=== PATIENT | male | born 1945 | race Caucasian/White ===

== ENCOUNTER 2018-01-08 19:24 | Emergency (ER) | payer MEDICARE, OTHER ==
[2018-01-08] MEDS ORDERED: Lidocaine 2% Jelly 5 ML TUBE ONE (20:35)
[2018-01-08] MEDS ORDERED: cefTRIAXone\\ROCEPHIN 500 MG VIAL ONE (21:01)
[2018-01-08] MEDS ORDERED: Lidocaine 1% (PF) 30 ML VIAL ONE (21:01)
== END 2018-01-08 22:21 | disposition home or self-care (01) ==
LOC: ERS 19:24
DX: R33.9 Retention of urine, unspecified (principal); E78.5 Hyperlipidemia, unspecified; I10 Essential (primary) hypertension
CPT/HCPCS: 51703; 96372; J0696; J2001

== ENCOUNTER 2018-10-16 09:51 | Inpatient (IN) | payer MEDICARE, OTHER ==
--- NOTE | 2018-10-14 20:33 | HP ---
HISTORY OF PRESENT ILLNESS: Bolivar Saucedo is a 73-year-old patient of Dr. Mcnulty, referred for a 2-1/2- to 3-week history of walking difficulty. This started after doing some ground work at home approximately 3 weeks ago. He had some back pain thereafter and over the course of a week began to experience significant weakness in the legs. The weakness has progressed now to the point that he has bilateral footdrop, worse on the right. Increasingly, the pain was significant for the first few days and then went away. Today, he is relatively pain free as he sits in the wheelchair for his examination. He has not lost control of his bowel or bladder, but the legs are not safe for him to walk on. He has had some 2 to 3 falls in the last 10 days. There is no neck pain. There is no mid back pain. There is no difficulty with arms or hands. There is no cognitive decline. Mr. Saucedo does not have history of cardiovascular events and has no exposure to recent viral infections. PAST MEDICAL HISTORY: Gout, hypertension, prostate hypertrophy. PAST SURGICAL HISTORY: Rotator cuff surgery, knee replacement, and herniorrhaphies. MEDICATIONS: 1. Triamterene. 2. Hydrochlorothiazide. 3. Meloxicam. 4. Simvastatin. 5. Flomax. 6. Finasteride. 7. Ranitidine. 8. Aspirin. ALLERGIES: BACTRIM AND LEVAQUIN. FAMILY HISTORY: Mr. Saucedo's father was , he had diabetes, hypertension, and stroke. His mother was , she also had diabetes, hypertension, heart disease, and stroke. He has two children. They are healthy and alive. 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 He lives with his for 47 years. He denies tobacco use, drug use, or alcohol use. REVIEW OF SYSTEMS: Multisystem review of systems was negative. PHYSICAL EXAMINATION: GENERAL: Mr. Saucedo is 5 feet 10 inches and weighs 199 pounds. NEUROLOGICAL: Cranial nerves 2 through 12 are intact. Cerebral exam; there is no truncal ataxia. Alternating rapid hand movements are performed rapidly and smoothly. Cognitive: Mr. Saucedo is awake and alert. He responds appropriately to questions. There are no obvious cognitive deficits for a man of this age. Speech is fluent. There is no evidence of dysphasia. Motor exam, upper extremities are normal. In the lower extremities, there is weakness that is mild in the quadriceps on the right and severe in the anterior tib on both sides, right worse than left. EHL is severely weak on the right greater than left. Toe flexors are weak, but not as weak as the extensor. Sensory exam; upper extremities are normal. In the lower extremities, there is an altered sensation, predominantly in the L5 distribution, worse on the right than the left. Reflexes; the reflexes at the knee and ankles are absent. The toes are downgoing. Reflexes in the upper extremities are preserved, but hypoactive and symmetric. IMAGING: I reviewed MR imaging of the lumbar spine that shows multisegment lumbar degenerative changes. These changes include ligamentous hypertrophy, facet overgrowth, bone spurs, and disk protrusions. Changes are more significant at L2-L3, L3-L4, and L4-L5. L4-L5 is by far the worst. There seems to be a new disk herniation in the lateral foramen on the right side at L4-L5 and the far lateral space as well. At L5-S1, there is a little lateral recess stenosis under the facet joint on the left. IMPRESSION: 1. Likely severe lumbar stenosis with acute exacerbation with physical activity. 2. New herniated disk. The only confusing aspect of the story is that Mr. Saucedo is relatively pain free currently. Pain free, acute weakness, and flaccid reflex. There might be an acute spinal cord compression in the thoracic spine. Postviral acute inflammatory demyelinating polyradiculoneuropathy is possible, but much less likely severity of the lumbar stenosis is significant, most likely the cause. I have offered a decompressive laminectomy. The patient has consented. Risks and benefits have been discussed which include, but is not limited to bleeding, infection, CSF leak, nerve damage, cauda equina injury, paralysis, incontinence, wheel chair dependence, major blood vessel injury, cardiopulmonary complications of anesthesia, and . Long-term complications include the need for further surgery and spinal instability. The patient states he understands the risks and he is willing to proceed. Job ID: [id number]
[2018-10-16] MEDS ORDERED: CEFAZOLIN 2 GM/50 ML BAG ONE (11:58)
[2018-10-16] MEDS ORDERED: Thrombin 5000 UNITS/5 ML VIAL ONE (13:43)
[2018-10-16] MEDS ORDERED: Sodium Chloride 0.9% 20 ML ONE (13:43)
[2018-10-16] MEDS ORDERED: Bupivacaine HCl 0.5%/Epinephrine 1:200,000/PF 30 ml Vial ONE (13:43)
[2018-10-16] MEDS ORDERED: Fentanyl 100 MCG/2 ML VIAL ONE ×5 (14:16→18:46)
[2018-10-16] MEDS ORDERED: Promethazine HCl 25 MG/ML VIAL SLOW IVP PRN (16:52)
[2018-10-16] MEDS ORDERED: Promethazine HCl 25 MG/ML VIAL IM PRN ×2 (16:52→17:46)
[2018-10-16] MEDS ORDERED: Ondansetron HCl/PF 4 MG/2 ML Vial IVP PRN (16:52)
[2018-10-16] MEDS ORDERED: diphenhydrAMINE 50 MG/ML VIAL IVP PRN (17:46)
[2018-10-16] MEDS ORDERED: Promethazine 25 MG TAB PO PRN (17:46)
[2018-10-16] MEDS ORDERED: Bisacodyl 10 MG SUPP PR PRN (17:46)
[2018-10-16] MEDS ORDERED: Acetaminophen 325 MG TAB PO PRN (17:46)
[2018-10-16] MEDS ORDERED: Morphine 4 MG/ML VIAL SLOW IVP PRN ×2 (17:46)
[2018-10-16] MEDS ORDERED: Milk Of Magnesia 30 ML UDCUP PO PRN (17:46)
[2018-10-16] MEDS ORDERED: Ondansetron PF 4 MG/2 ML Vial IVP PRN (17:46)
[2018-10-16] MEDS ORDERED: diphenhydrAMINE 25 MG CAP PO PRN (17:46)
[2018-10-16] MEDS ORDERED: Mag-Al 1200 mg/1200 mg/30 ML UDCUP PO PRN (17:46)
[2018-10-16] MEDS ORDERED: Acetaminophen 650 MG Suppository PR PRN (17:46)
[2018-10-16 20:04] VITALS: BMI 28.8
[2018-10-16] MEDS: Sodium Chloride 0.9% 1,000 ML IV SCH (20:07)
[2018-10-16] MEDS: CEFAZOLIN 2 GM/50 ML BAG IVPB SCH (20:46)
[2018-10-16] MEDS ORDERED: Non-Formulary Item 1 EACH (Ranitidine Hcl [Ranitidine Hcl] 150 MG) PO SCH (21:00)
[2018-10-16] MEDS ORDERED: PROPOFOL 200 MG/20 ML VIAL ONE (21:08)
[2018-10-16] MEDS ORDERED: PHENYLEPHRINE-NS 100 MCG/ML 10 ML SYRINGE ONE (21:08)
[2018-10-16] MEDS ORDERED: Glycopyrrolate 0.2 MG/ML 5 ML SYRINGE ONE (21:08)
[2018-10-16] MEDS ORDERED: Dexamethasone 20 MG/5 ML VIAL ONE (21:08)
[2018-10-16] MEDS ORDERED: ePHEDrine/0.9% NaCl/PF SYRINGE 50 mg/10 ml ONE (21:08)
[2018-10-16] MEDS ORDERED: Lidocaine 1% PF 5 ML VIAL ONE (21:08)
[2018-10-16] MEDS: tiZANidine HCl 4 MG TAB PO PRN (21:12)
[2018-10-16] MEDS: Famotidine 20 MG TAB PO SCH (21:12)
[2018-10-16] MEDS: Tamsulosin HCl 0.4 MG CAP PO SCH (21:12)
[2018-10-16] MEDS: Simvastatin 40 MG TAB PO SCH (21:12)
--- NOTE | 2018-10-17 00:41 | OP ---
DATE OF PROCEDURE: 10/16/2018 SECURITIES TELLER: Danielle Nunez PA-C. PREOPERATIVE INDICATION: Treat pain and prevent neurological deterioration. PREOPERATIVE DIAGNOSES: Multilevel lumbar stenosis and lateral recess disease causing severe neurogenic claudication, L2-L3, L3-L4, L4-L5 and left L5-S1, intervertebral disk herniation, far lateral, right L4-L5. POSTOPERATIVE DIAGNOSES: Multilevel lumbar stenosis and lateral recess disease causing severe neurogenic claudication, L2-L3, L3-L4, L4-L5 and left L5-S1, intervertebral disk herniation, far lateral, right L4-L5. OPERATIVE PROCEDURE: With a decompressive laminectomy, medial facetectomy, foraminotomy, L2-L3, L3-L4, L4-L5, left L5-S1, microdiskectomy, far-lateral approach of right L4-L5 operative microscope. PREOPERATIVE MEDICATIONS: Ancef 2 g IV. DRAINS: Zero. DRAIN TYPE: None. DESCRIPTION OF PROCEDURE: The patient was brought to the operating room. General endotracheal anesthesia was induced. The patient was positioned prone on gel-filled chest rolls, and a lateral fluoro radiograph was used to plan our incision. The lumbar skin was sterilely prepped and draped. We opened our planned incision with a #10 blade knife and controlled bleeding with bipolar and monopolar cautery. We used monopolar cautery to dissect through the subcutaneous tissues to the thoracodorsal fascia. We incised the fascia in the midline and we reflected the paraspinal muscles off the spinous process and lamina of L2 through S1. Self-retaining retractors were placed and a lateral fluoro radiograph confirmed the levels upon which we were operating. We then used an Adson rongeur to remove the spinous process of L2, L3, L4 and the superior portion of L5. We waxed the bone edges. Using a Kerrison rongeur, we fashioned a laminectomy down the midline and then we widened our laminectomy defect until we were flush with the pedicles. We then needed to decompress the lateral recesses even further. We performed medial facetectomies with Kerrison rongeurs and foraminotomies over the exiting nerve roots including the L2, L3, L4 and L5 nerve roots. At the completion of our decompression, the center of the canal, lateral recesses were all well decompressed. We waxed the bone edges and then turned our attention to the left side of L5-S1. In a similar fashion, we performed a hemilaminectomy at L5-S1 on the left. We performed a medial facetectomy until we could visualize the S1 nerve root beneath the medial facet. We removed enough medial facet that the nerve root no longer had any compression on its dorsal aspect. We performed a foraminotomy over that exit of the S1 nerve root. We irrigated copiously with bacitracin irrigation and waxed the bone edges there. We then brought the operative microscope into the field. Under microscopic magnification and using microsurgical techniques, we carefully performed a microdiskectomy and a thorough far-lateral approach at L4-L5 on the right side. Using a high-speed drill, we drilled away the superior portion of the facet joint at L4-L5 and the inferior portion of the transverse process of L4. We countered soft tissue in the foramen. We performed a foraminotomy in this lateral approach. I placed a Sweeney ball probe in the canal and out the foramen and made sure that our bites were above the ball probe, removing soft tissue and intervertebral disks until we could easily visualize the L4 nerve root. It was well decompressed at the completion of our diskectomy and foraminotomy. We irrigated copiously with bacitracin irrigation. We then infused local anesthetic in all the paraspinal muscles. We closed the wound in anatomical layers. We applied a sterile dressing. This was a clean case. No contamination. Job ID: [id number]
[2018-10-17] MEDS: Acetaminophen/Codeine 30-300mg Tablet PO PRN ×3 (02:07→16:31)
[2018-10-17] MEDS: CEFAZOLIN 2 GM/50 ML BAG IVPB SCH (03:35)
[2018-10-17] MEDS ORDERED: Tamsulosin HCl 0.4 MG CAP PO SCH (06:00)
[2018-10-17] MEDS: Sodium Chloride 0.9% 1,000 ML IV SCH ×2 (07:54→23:48)
[2018-10-17] MEDS: Finasteride 5 MG TAB PO SCH (08:20)
[2018-10-17] MEDS: Meloxicam 15 MG TAB PO SCH (08:21)
[2018-10-17] MEDS: Famotidine 20 MG TAB PO SCH ×2 (08:21→20:27)
[2018-10-17] MEDS: Tamsulosin HCl 0.4 MG CAP PO SCH ×2 (08:21→20:27)
[2018-10-17] MEDS: Triamterene/Hydrochlorothiazide 37.5 mg/25 mg Tablet PO SCH (08:22)
--- NOTE | 2018-10-17 11:59 | PRG ---
DATE OF SERVICE: 10/17/2018 Mr. Saucedo is doing well with improvement in his leg pain and paresthesias. He does have significant urinary retention due to an enlarged prostate gland that has been evaluated by Urology. He does have an indwelling Leon catheter. They have asked to stay one more day and I think it is reasonable. He is working with Physical Therapy and just walked 100 feet, although he does live at home with his and she feels as if she is not quite ready to take care of him, if he had to go home today. We will plan one more day in the hospital. Job ID: [id number]
--- NOTE | 2018-10-17 14:25 | CON ---
DATE OF CONSULTATION: 10/17/2018 TYPE OF CONSULTATION: Urology inpatient consultation. REASON FOR CONSULTATION: Urinary retention. REQUESTING PHYSICIAN: Abdon Jackson MD HISTORY OF PRESENT ILLNESS: Mr. Saucedo is a 73-year-old male, who over the past week had progressive bilateral lower extremity weakness. On presentation, he had MRI imaging, which demonstrated multilevel degenerative disk disease with possibly a new herniation. He underwent a decompressive laminectomy yesterday on 10/16/2018. He tolerated the procedure well and was transferred to the floor postoperatively. Intraoperatively, attempts of placement of Leon catheter were unsuccessful. He was unable to void last night, and during the night, he had a 14-Lithuanian Coude placed with some difficulty. The patient now feels relieved. He has been draining clear yellow urine since then. Urology was consulted for further evaluation. The patient sees Dr. Moore as an outpatient. He has history of what he describes as masses and prostate enlargement and underwent a prostate biopsy earlier this year and subsequently developed urinary retention thereafter. The patient reports his biopsy was negative and he currently takes tamsulosin and finasteride at home. No gross hematuria. On a day-to-day basis, he reports minimal voiding difficulty. No other complaints. REVIEW OF SYSTEMS: Full 12-point review of systems was performed and is negative other than that mentioned in the HPI. PAST MEDICAL HISTORY: 1. BPH. 2. Gout. 3. Hypertension. PAST SURGICAL HISTORY: Rotator cuff surgery, knee replacement, and hernia repairs. HOME MEDICATIONS: 1. Triamterene. 2. Hydrochlorothiazide. 3. Meloxicam. 4. Simvastatin. 5. Flomax. 6. Finasteride. 7. Ranitidine. 8. Aspirin. FAMILY HISTORY: Noncontributory. SOCIAL HISTORY: The patient is a retired computer programer. He lives with his . No alcohol, tobacco, or illicit drugs. ALLERGIES: NO KNOWN DRUG ALLERGIES. PHYSICAL EXAMINATION: VITAL SIGNS: Temperature 98, pulse 64, respirations 18, oxygen saturation 96% on room air, and blood pressure 99/61. GENERAL: He is alert and oriented x3, no apparent distress. HEENT: Normocephalic, atraumatic. NECK: Supple. No masses or lymphadenopathy. CARDIOVASCULAR: Regular rate and rhythm. PULMONARY: Breathing unlabored. ABDOMEN: Soft, nontender, nondistended. No masses or organomegaly. No suprapubic tenderness to palpation. No CVA tenderness. GENITOURINARY: Normal penis without concerning lesion. Scrotum normal. Testis palpably normal bilaterally. Leon catheter in place, draining clear yellow urine and confirmed to be correctly positioned. ASSESSMENT: A 73-year-old male with benign prostatic hypertrophy with bladder outlet obstruction, acute urinary retention, and symptomatic disk herniation, status post decompressive laminectomy. PLAN: I reviewed the natural history and clinical implications of urinary retention with the patient in detail. I explained this is likely secondary to his BPH with bladder outlet obstruction. I explained that the effects of anesthesia and manipulation of the urinary tract intraoperatively with Leon catheter placement likely created some swelling in the prostate, which is preventing him from being able to urinate. Recommend that the Leon catheter remain in place for 48 hours. If the patient is stable for discharge otherwise, he can be discharged to home with his Leon catheter and followup with Dr. Moore next week. Otherwise, if the patient is going to be kept inhouse, likely on Friday it would be appropriate for him to attempt voiding trail. Thank you for allowing me to participate in the care of this patient. Job ID: [id number]
[2018-10-17] MEDS: tiZANidine HCl 4 MG TAB PO PRN (20:26)
[2018-10-17] MEDS: Simvastatin 40 MG TAB PO SCH (20:27)
[2018-10-18] MEDS: Triamterene/Hydrochlorothiazide 37.5 mg/25 mg Tablet PO SCH (08:17)
[2018-10-18] MEDS: Tamsulosin HCl 0.4 MG CAP PO SCH ×2 (08:17→22:17)
[2018-10-18] MEDS: Finasteride 5 MG TAB PO SCH (08:17)
[2018-10-18] MEDS: Famotidine 20 MG TAB PO SCH ×2 (08:18→22:16)
[2018-10-18] MEDS: Meloxicam 15 MG TAB PO SCH (08:18)
[2018-10-18] MEDS: Sodium Chloride 0.9% 1,000 ML IV SCH (09:03)
--- NOTE | 2018-10-18 12:00 | PRG ---
DATE OF SERVICE: 10/18/2018 DICTATING FOR: Leon Faye MD SUBJECTIVE: Mr. Saucedo is now postoperative day #2, having undergone lumbar laminectomy by Dr. Jackson. Urinary retention remains an issue likely due to narcotics and BPH. According to the patient's , Urology has seen the patient and has asked that he keep the catheter in until tomorrow morning and do a voiding trial at that time. Therefore, they have asked to stay in the hospital overnight. The patient states that he feels that he is overall improving and has good pain control. Still has numbness and tingling in the bilateral feet, but states he feels more steady on his feet. He remains with good strength in the bilateral lower extremities and has been walking with therapies. We will hope for discharge tomorrow. Please call with any questions and any changes in the patient's neurological status. Job ID: [id number]
[2018-10-18] MEDS: Acetaminophen/Codeine 30-300mg Tablet PO PRN ×2 (17:26→22:23)
[2018-10-18] MEDS: Simvastatin 40 MG TAB PO SCH (22:17)
[2018-10-18] MEDS: tiZANidine HCl 4 MG TAB PO PRN (22:23)
[2018-10-19] MEDS: Sodium Chloride 0.9% 1,000 ML IV SCH (01:50)
[2018-10-19] MEDS: Finasteride 5 MG TAB PO SCH (08:20)
[2018-10-19] MEDS: Triamterene/Hydrochlorothiazide 37.5 mg/25 mg Tablet PO SCH (08:20)
[2018-10-19] MEDS: Famotidine 20 MG TAB PO SCH (08:20)
[2018-10-19] MEDS: Tamsulosin HCl 0.4 MG CAP PO SCH (08:20)
[2018-10-19] MEDS: Meloxicam 15 MG TAB PO SCH (08:21)
--- NOTE | 2018-10-19 08:25 | PRG ---
DATE OF SERVICE: 10/19/2018 NEUROSURGERY PROGRESS NOTE SUBJECTIVE: Mr. Saucedo is 3 days out from a long-segment lumbar decompression with microdiskectomy for severe neurogenic claudication and radiculopathy. Over the weekend, he had some difficulty with urinary retention. He mobilized slowly with physical therapy and now feels safe to go home. He would like to try removal of the catheter to see if he can void spontaneously and if he cannot, will go home with an indwelling catheter and see Dr. Moore in followup. Recent vital signs overnight have been stable. His neurological examination is reassuring. Followup arrangements, activity restrictions, and wound care were reviewed. Discharge will happen today. Job ID: [id number]
[2018-10-19 11:57] VITALS: BP 130/73; TEMP 97.6
== END 2018-10-19 14:27 | disposition home or self-care (01) | DRG 520 ==
LOC: SDC 09:51 → SURG A 19:07
PROVIDERS: ADMIT Neurological Surgery; ATTEND Neurological Surgery
PROC: 01NB0ZZ Release Lumbar Nerve, Open Approach (ICD-10-PCS; principal; 2018-10-16)
PROC: 0SB20ZZ Excision of Lumbar Vertebral Disc, Open Approach (ICD-10-PCS; 2018-10-16)
DX: M48.062 Spinal stenosis, lumbar region with neurogenic claudication (principal); M51.26 Other intervertebral disc displacement, lumbar region; M10.9 Gout, unspecified; I10 Essential (primary) hypertension; Z79.82 Long term (current) use of aspirin; Z88.1 Allergy status to other antibiotic agents; Z88.2 Allergy status to sulfonamides; N40.1 Benign prostatic hyperplasia with lower urinary tract symptoms; R33.8 Other retention of urine
CPT/HCPCS: 76001; G8978-GP-CI; G8979-GP-CH; J0131; J0670; J1100; J2001; J2704; J3010; J3370; J3490

== ENCOUNTER 2018-10-23 23:27 | Emergency (ER) | payer MEDICARE, OTHER ==
[2018-10-24 00:17] LABS: #Basophils 0.1 thou/uL (0.0-0.2); #Eosinphils 0.6 thou/uL (0.0-0.7); #Lymphocytes 1.8 thou/uL (1.20-3.40); #Monocytes 0.9 thou/uL (0.11-0.59); #Neutrophils 6.7 thou/uL (1.40-6.50); %Lymphocytes 17.9 % (21.0-51.0); %Monocytes 9.1 % (0.0-10.0); Hemoglobin 11.7 g/dL (14.0-18.0); Mean Corpuscular HGB CONC 33.6 g/dL (32.0-36.0); Mean Corpuscular Hemoglobin 31.1 pg (27.0-31.0); Mean Corpuscular Volume 92.5 fL (78.0-98.0); Mean Platelet Volume 7.2 fL (7.4-10.4); Platelet Count 239 thou/uL (130-400); RBC Distribution Width 10.8 % (11.5-14.5); Red Blood Cell (RBC) Count 3.77 mill/uL (4.70-6.10); White Blood Cell (WBC) Count 10.2 thou/uL (4.8-10.8)
[2018-10-24 00:25] LABS: Anion Gap 13 mmol/L (10-20); BUN (Urea Nitrogen) 11 mg/dL (8.4-25.7); Calc. Creatinine Clearance 0 mL/min (70-130); Calcium 8.9 mg/dL (7.8-10.44); Carbon Dioxide 23 mmol/L (23-31); Chloride 95 mmol/L (98-107); Estimated GFR-MDRD Greater than 90; Glucose 128 mg/dL (83-110); Potassium 3.3 mmol/L (3.5-5.1); Sodium 128 mmol/L (136-145)
[2018-10-24] MEDS ORDERED: Morphine 4 MG/ML VIAL ONE (01:29)
[2018-10-24 02:51] LABS: Bilirubin Negative (Negative); Blood, Urine Moderate (Negative); Clarity CLEAR (Clear); Glucose, Urine (Dipstick) Negative (Negative); Leukocyte Negative (Negative); Nitrite Negative (Negative); Protein, Urine (Dipstick) Negative (Neg-Trace); Specific Gravity, Urine 1.006 (1.002-1.036); Urobilinogen 0.2 mg/dL (0.2-1.0); pH, Urine 7.5 (5.0-9.0)
[2018-10-24 02:53] LABS: Bacteria/HPF None Seen HPF (None Seen); Hyaline Casts/LPF 0-3 HYALINE CAST LPF (0-3 Hyaline); Squamous Epithelial None Seen HPF (0-3); WBC/HPF None Seen HPF (0-3)
--- NOTE | 2018-10-24 04:34 | OP ---
DATE OF PROCEDURE: 10/24/2018 PREPROCEDURAL DIAGNOSES: 1. Urinary retention. 2. Benign prostatic hypertrophy. 3. History of postoperative urinary retention, status post recent spinal surgery. 4. 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 5. Failure to place Leon catheter after multiple attempts by emergency room personal. POSTPROCEDURAL DIAGNOSES: 1. Urinary retention. 2. Benign prostatic hypertrophy. 3. History of postoperative urinary retention, status post recent spinal surgery. 4. 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 5. Failure to place Leon catheter after multiple attempts by emergency room personal. 6. Bladder neck contracture. PROCEDURE PERFORMED: Cystourethroscopy, [id number]. BRIEF HISTORY AND INDICATIONS FOR PROCEDURE: Mr. Bolivar Saucedo is a pleasant 73-year-old white male with a history of prostate hypertrophy with obstruction and difficult catheter placement history. The patient routinely sees Dr. Alexis Barger. The patient underwent a voiding trial today after multiple urinary retention episodes following his recent spinal surgery and apparently passed the voiding trial. The patient subsequently had great difficulty passing urine and progressively over the day he had increasing swelling of the lower abdomen. The patient decided to present to the emergency room initially at the [facility]'s Emergency Room and subsequently was transported here at the [facility] where I evaluated him and determined that we needed to proceed with cystoscopic evaluation based on the difficulty ER personnel had with catheter placement. He does have a little bit of blood at the meatus on examination. DESCRIPTION OF PROCEDURE: The patient was appropriately identified and informed written consent was obtained. The patient was sterilely and draped in the usual fashion. Cystoscopic evaluation was performed using 14-Israeli ACMI scope. The patient's urethra was filled with viscous jelly to allow for additional lubrication. We did attempt placement of a catheter 16-Israeli, which did not proceed into the patient's bladder evidently meeting the same obstructive feature as previously observed by emergency room personnel. We utilized the ACMI scope to negotiate the patient's urethra, which was intact without evidence of injury. The patient urinary sphincter was partially opened at rest. We entered the prostate gland, which appeared to be obstructive. There were some blood at this level evidently secondary to bleeding from the prostate. This was not profuse. Although, obscuring cystoscopic evaluation for this portion of the bladder neck of the patient was plainly visible, the patient does appear to have some degree of proximal prostate hypertrophy presumably so called median lobe formation. The patient's bladder was subsequently entered. Urine in the bladder was completely clear. The patient's bladder was massively overdistended. Full bladder cannot be thoroughly evaluated due to this. I placed a 0.035 angled glidewire into the patient's bladder without difficulty. After placing the wire into the patient's bladder, I withdrew the scope and subsequently placed a 16-Israeli Flandreau-tip catheter over wire into the patient's bladder. Balloon was filled to 15 mL. The patient's bladder was drained of at least 3000 mL of urine in the first 10 to 15 minutes after placement of the catheter. The patient felt near immediate relief. There was no evidence of gross blood in the catheter and the catheter appeared to drain correctly. It was secured to the patient's right leg using Microfoam tape. The patient was instructed on appropriate care of the catheter drainage system, and was provided with both bedside bag and a leg bag. The patient is already on Macrodantin at home and his pain medications. The patient will follow up with Dr. Alexis Barger for further evaluation and assessment as an outpatient. COMPLICATIONS: None. DRAINS AND TUBES: 16-Israeli Flandreau-tip catheter to gravity bag. SPECIMENS: None. Job ID: [id number]
--- NOTE | 2018-10-24 06:34 | CON ---
DATE OF CONSULTATION: 10/24/2018 REASON FOR CONSULTATION: Urinary retention after catheter removal. HISTORY OF PRESENT ILLNESS: Mr. Bolivar Saucedo is a pleasant 73-year-old white male patient of Dr. Alexis Barger and Dr. Dell Gaviria, who recently underwent a spine surgery after he became paralyzed. The patient had an indwelling Leon catheter postoperatively and developed postoperative urinary retention. His indwelling catheter was replaced on several occasions and the patient underwent a final voiding trial today at Dr. Barger's office. Apparently, he had some difficulty afterwards, did have a bladder scan that showed a small residual and he was allowed home. During the day today, Mr. Saucedo has had some difficulty with voiding initially with frequent very small volume voids and then no voiding at all. The patient presented to the [place] [facility] where he underwent ER evaluation. A Leon catheter could not be placed in the emergency department. The patient was subsequently brought to the [facility] where I have evaluated him today. Mr. Saucedo reports that he is having extreme suprapubic discomfort. He reports he is completely unable to void at this point. He has not had significant amounts of blood per urethra. ALLERGIES: INCLUDE THE FOLLOWING, 1. BACTRIM. 2. LEVOFLOXACIN. 3. SULFAMETHOXAZOLE. 4. TRIMETHOPRIM. MEDICATIONS: Complete home medication list includes the following, 1. Triamterene/hydrochlorothiazide 37.5/25 mg one p.o. q.a.m. 2. Meloxicam 15 mg p.o. daily. 3. Simvastatin 40 mg p.o. at bedtime. 4. Tamsulosin 0.4 mg p.o. at bedtime. 5. Finasteride 5 mg p.o. at bedtime. 6. Ranitidine 150 mg p.o. twice daily. 7. Aspirin 81 mg p.o. daily. PAST MEDICAL HISTORY: Includes BPH with obstruction, hypertension, elevated serum cholesterol. PAST SURGICAL HISTORY: 1. Knee replacement. 2. Rotator cuff surgery. 3. Hernia repair x2. 4. Laminectomy, 10/2018. SOCIAL HISTORY: The patient is retired from [employer]. He has no smoking history. He is not a drug user except for prescribed medications. The patient is and presents with both his and daughter today. PHYSICAL EXAMINATION: VITAL SIGNS: Blood pressure is 135/63, pulse 67, respirations 16, temperature is 98.1. The patient reports pain levels of 8 to 10. His room air oxygen saturation is 100%. HEAD, EYES, EARS, NOSE, AND THROAT: Extraocular movements are intact. Sclerae are anicteric. Oropharynx is clear. NECK: Supple. LUNGS: Clear to auscultation bilaterally. CARDIAC: Regular rate and rhythm without murmur, rub, or gallop. ABDOMEN: Soft and nontender except for infraumbilically and suprapubically where there is palpable mass and fullness. GENITOURINARY: The patient is uncircumcised and has near buried penis. Scrotal contents appear benign. Testes are present bilaterally nontender. There appears to be a small amount of urinary overflow incontinence present. Digital rectal examination was not performed. EXTREMITIES: The patient has a right knee scar consistent with his known history of right knee replacement. BACK: Examination was not performed as the patient has been instructed not to twist or bend his back at this point secondary to his recent surgery. Family reports that ron are present. ASSESSMENT: Urinary retention. Please see a separately dictated note for cystoscopic assessment of this patient. Briefly, the patient did undergo cystoscopic assessment today and placement of a Leon catheter over wire. He appears to have both an enlarged prostate gland and a bladder neck contracture to my exam. On the exam, there was also evidence of intraprostatic obstructive features with some bleeding in the prostate. I was not able to observe any tunneling or other injury, although blood was present. The bladder appeared to be free of blood and the patient's catheter drained approximately 3 liters to immediate catheter placement. Total consultation assessment time exclusive of procedures is 80 minutes. Job ID: [id number]
== END 2018-10-24 03:09 | disposition home or self-care (01) ==
LOC: ERS 23:27
DX: R33.9 Retention of urine, unspecified (principal); I10 Essential (primary) hypertension; E78.00 Pure hypercholesterolemia, unspecified; Z79.82 Long term (current) use of aspirin; Z79.899 Other long term (current) drug therapy
CPT/HCPCS: 36415; 51702; 80048; 81003; 81015; 85025; 87086; 96372; J2270

== ENCOUNTER 2018-11-25 08:02 | Outpatient (CLI) | payer MEDICARE, OTHER ==
[2018-10-13 13:02] LABS: Hemoglobin 14.4 g/dL (14.0-18.0); Mean Corpuscular HGB CONC 32.9 g/dL (32.0-36.0); Mean Corpuscular Hemoglobin 31.5 pg (27.0-31.0); Mean Corpuscular Volume 95.8 fL (78.0-98.0); Mean Platelet Volume 7.5 fL (7.4-10.4); Platelet Count 209 thou/uL (130-400); RBC Distribution Width 11.5 % (11.5-14.5); Red Blood Cell (RBC) Count 4.55 mill/uL (4.70-6.10); White Blood Cell (WBC) Count 7.6 thou/uL (4.8-10.8)
[2018-10-13 13:10] LABS: PTT 29.9 SEC (22.9-36.1); Prothrombin Time 13.7 SEC (12.0-14.7)
[2018-10-13 13:21] LABS: Anion Gap 10 mmol/L (10-20); BUN (Urea Nitrogen) 14 mg/dL (8.4-25.7); Calc. Creatinine Clearance 0 mL/min (70-130); Calcium 9.6 mg/dL (7.8-10.44); Carbon Dioxide 27 mmol/L (23-31); Chloride 100 mmol/L (98-107); Estimated GFR-MDRD 65; Glucose 104 mg/dL (83-110); Potassium 4.2 mmol/L (3.5-5.1); Sodium 133 mmol/L (136-145)
[2018-11-25 14:24] LABS: Hemoglobin 13.9 g/dL (14.0-18.0); Mean Corpuscular HGB CONC 32.5 g/dL (32.0-36.0); Mean Corpuscular Hemoglobin 31.1 pg (27.0-31.0); Mean Corpuscular Volume 95.6 fL (78.0-98.0); Platelet Count 324 thou/uL (130-400); RBC Distribution Width 12.2 % (11.5-14.5); Red Blood Cell (RBC) Count 4.47 mill/uL (4.70-6.10); White Blood Cell (WBC) Count 6.8 thou/uL (4.8-10.8)
[2018-11-25 14:33] LABS: INR-International Normal Ratio 1.1
[2018-11-25 14:44] LABS: Anion Gap 15 mmol/L (10-20); BUN (Urea Nitrogen) 16 mg/dL (8.4-25.7); Calc. Creatinine Clearance 0 mL/min (70-130); Calcium 9.6 mg/dL (7.8-10.44); Carbon Dioxide 22 mmol/L (23-31); Chloride 103 mmol/L (98-107); Estimated GFR-MDRD 61; Glucose 99 mg/dL (83-110); Sodium 136 mmol/L (136-145)
== END 2018-11-25 08:03 | disposition home or self-care (01) ==
LOC: LABBT 08:02
PROVIDERS: ATTEND Urology
DX: Z01.812 Encounter for preprocedural laboratory examination (principal); R33.9 Retention of urine, unspecified; N32.0 Bladder-neck obstruction
CPT/HCPCS: 80048; 85027; 85610; 85730; 87086

== ENCOUNTER 2018-11-30 08:03 | Inpatient (IN) | payer MEDICARE, OTHER ==
[2018-11-25 13:20] VITALS: BMI 27.2
[2018-11-30] MEDS ORDERED: cefTRIAXone\\ROCEPHIN 2 GM VIAL ONE (09:54)
[2018-11-30] MEDS ORDERED: Sodium Chloride 0.9% 100 ML ONE (09:55)
[2018-11-30] MEDS ORDERED: Vancomycin HCl 1.5 GM in Sodium Chloride 0.9% 250 ML 300 ML IVPB SCH (10:00)
[2018-11-30] MEDS ORDERED: B & O ONE (11:23)
[2018-11-30] MEDS ORDERED: Famotidine/PF 20 mg/2ml Vial ONE (11:26)
[2018-11-30] MEDS ORDERED: Fentanyl 100 MCG/2 ML VIAL ONE (11:26)
[2018-11-30] MEDS ORDERED: PHENYLEPHRINE-NS 100 MCG/ML 10 ML SYRINGE ONE (13:31)
[2018-11-30] MEDS ORDERED: Dexamethasone 20 MG/5 ML VIAL ONE (13:31)
[2018-11-30] MEDS ORDERED: Ondansetron PF 4 MG/2 ML Vial ONE (13:31)
[2018-11-30] MEDS ORDERED: ePHEDrine/0.9% NaCl/PF SYRINGE 50 mg/10 ml ONE (13:31)
[2018-11-30] MEDS ORDERED: Lidocaine 1% PF 5 ML VIAL ONE (13:31)
[2018-11-30] MEDS ORDERED: PROPOFOL 200 MG/20 ML VIAL ONE (13:31)
[2018-11-30] MEDS ORDERED: Rocuronium Bromide 10 MG/ML (10ML VIAL) ONE (13:31)
[2018-11-30] MEDS ORDERED: Ondansetron HCl/PF 4 MG/2 ML Vial IVP PRN (14:13)
[2018-11-30] MEDS ORDERED: Promethazine HCl 25 MG/ML VIAL IM PRN (14:13)
[2018-11-30] MEDS ORDERED: Promethazine HCl 25 MG/ML VIAL SLOW IVP PRN (14:13)
[2018-11-30] MEDS ORDERED: traMADol HCl 50 MG TAB PO PRN (17:31)
[2018-11-30] MEDS ORDERED: B & O PR PRN (17:31)
[2018-11-30] MEDS: D5 1/2 NS w/20 mEq KCL 1,000 ML IV SCH (18:00)
[2018-11-30] MEDS: Atorvastatin Calcium 20 MG TAB PO SCH (20:33)
[2018-11-30] MEDS: Docusate 100 MG CAP PO SCH (20:33)
[2018-11-30] MEDS: Famotidine 20 MG TAB PO SCH (20:33)
--- NOTE | 2018-11-30 21:06 | OP ---
DATE OF PROCEDURE: 11/30/2018 PREOPERATIVE DIAGNOSES: Urinary retention and bladder outlet obstruction. POSTOPERATIVE DIAGNOSES: Urinary retention and bladder outlet obstruction. PROCEDURES PERFORMED: Cysto and transurethral resection of the prostate. ANESTHESIA: General. ESTIMATED BLOOD LOSS: Probably 150 mL. DRAINS PLACED: A 22-Trinidadian Leon three way with 60 mL in the balloon. FINDINGS: He had no stricture disease. 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 DESCRIPTION OF PROCEDURE: After obtained written and verbal consent from the patient, after receiving IV antibiotics, he was taken to the operating suite. He was placed in a supine position on the treatment table. PlexiPulses were placed on his lower extremities and turned on. His Leon catheter was deflated and removed. He was given a general anesthetic and oral intubation. He was placed in the dorsal lithotomy position and sterilely prepped and draped. Cystoscopy was performed with a 22-Trinidadian sheath. This was well lubricated and passed under direct vision through the male urethra into the urinary bladder with a 30-degree lens, video camera, and monitor. The bladder was filled and emptied number of times, being exam with both the 30 and the 70 degree lens. The instruments were removed. A 24-Trinidadian resectoscope sheath with a visual obturator was then used and a 30 degree lens, video camera, and monitor. This was passed through the male urethra into the bladder. The gyrus generator with a prostate loop within the Blunt resectoscope, 30-degree lens, video camera, and monitor were obtained. The landmarks including the trigone ureteral orifices, verumontanum, and bladder neck were identified. We initially resected the tissue that was intravesical lifting it up off the floor of the bladder, resecting the bladder neck fibers from 5 to 7 and resected the floor from 5 to 7 to just proximal to the verumontanum. The left lobe was taken down from 1 to 5, right from 11 to 7, back to capsular fibers. The anterior tissue was resected between 11 and 1, and then we resected some of the apical tissue with half of the bites. Ellik evacuation was performed. Hemostasis was obtained with electrocautery. The bladder was inspected. There was no evidence of any injury to the bladder or ureteral orifice. Leon catheter was then placed with aid of a catheter guide, 60 mL placed in the balloon. It was hand irrigated with light pink to clear. It was hooked up to continuous bladder irrigation. He was taken out of dorsal lithotomy position, awakened, extubated, and taken by stretcher to recovery room. Job ID: [id number]
[2018-12-01] MEDS: D5 1/2 NS w/20 mEq KCL 1,000 ML IV SCH (04:34)
[2018-12-01] MEDS: Triamterene/Hydrochlorothiazide 37.5 mg/25 mg Tablet PO SCH (09:05)
[2018-12-01] MEDS: Finasteride 5 MG TAB PO SCH (09:06)
[2018-12-01] MEDS: Meloxicam 15 MG TAB PO SCH (09:06)
[2018-12-01] MEDS: Famotidine 20 MG TAB PO SCH ×2 (09:06→20:36)
[2018-12-01] MEDS: Vancomycin HCl 1 GM in Premix Bag 1 BAG IVPB SCH (09:11)
[2018-12-01] MEDS: cefTRIAXone\\ROCEPHIN 1 GM in Sodium Chloride 0.9% 100 ML IVPB SCH (11:06)
[2018-12-01] MEDS: Atorvastatin Calcium 20 MG TAB PO SCH (20:36)
[2018-12-01] MEDS: Docusate 100 MG CAP PO SCH (20:36)
[2018-12-02] MEDS: Famotidine 20 MG TAB PO SCH (08:37)
[2018-12-02] MEDS: Meloxicam 15 MG TAB PO SCH (08:37)
[2018-12-02] MEDS: Vancomycin HCl 1 GM in Premix Bag 1 BAG IVPB SCH (08:37)
[2018-12-02] MEDS: Finasteride 5 MG TAB PO SCH (08:37)
[2018-12-02] MEDS: Triamterene/Hydrochlorothiazide 37.5 mg/25 mg Tablet PO SCH (08:37)
[2018-12-02] MEDS ORDERED: Acetaminophen 325 MG TAB PO PRN ×2 (10:52)
[2018-12-02] MEDS: cefTRIAXone\\ROCEPHIN 1 GM in Sodium Chloride 0.9% 100 ML IVPB SCH (11:53)
[2018-12-02 16:14] VITALS: BP 133/70; TEMP 98.5
== END 2018-12-02 16:30 | disposition home or self-care (01) | DRG 714 ==
LOC: SDC 08:03 → SURG A 17:11
PROVIDERS: ADMIT Urology; ATTEND Urology
PROC: 0VT08ZZ Resection of Prostate, Via Natural or Artificial Opening Endoscopic (ICD-10-PCS; principal; 2018-11-30)
PROC: 0TJB8ZZ Inspection of Bladder, Via Natural or Artificial Opening Endoscopic (ICD-10-PCS; 2018-11-30)
DX: N40.1 Benign prostatic hyperplasia with lower urinary tract symptoms (principal); R33.8 Other retention of urine; N32.0 Bladder-neck obstruction; Z88.2 Allergy status to sulfonamides; Z88.1 Allergy status to other antibiotic agents
CPT/HCPCS: 88305; J0131; J0696; J1100; J2001; J2405; J2704; J3010; J3370; J7050; S0028